=== PATIENT | female | born 1950 | race Caucasian/White ===

== ENCOUNTER 2021-10-26 17:53 | Emergency (ER) | payer MEDICARE, BC ==
[~2021-10-26] VITALS: Ht 157.5 cm; Wt 61.2 kg
--- NOTE | 2021-10-26 18:32 | NUR ---
DR BUCHANAN AT BEDSIDE
--- NOTE | 2021-10-26 18:51 | NUR ---
PATIENT WHEELED OUT VIA GURNEY FOR CT SCAN
[2021-10-26] MEDS ORDERED: LIDOCAINE HCL/MPF 1% 30 ML VIAL IJ ONE (18:53)
[2021-10-26] MEDS ORDERED: HYDROCODONE/APAP 5/325MG TABLET ONE (18:54)
[2021-10-26] MEDS ORDERED: BACI/NEOM/POLY B OINT PKT 1 UDPKT PACKET ONE (18:54)
[2021-10-26] MEDS ORDERED: HYDROCODONE/APAP 5/325MG TABLET PO ONE (19:00)
[2021-10-26] MEDS ORDERED: LIDOCAINE HCL/PF 1% 30 ML VIAL TP ONE (19:00)
[2021-10-26] MEDS ORDERED: BACI/NEOM/POLY B OINT PKT 1 UDPKT PACKET TP ONE (19:00)
--- NOTE | 2021-10-26 19:00 | NUR ---
KRISTY [id number] From "Home was getting dressed-lost balance fell on left side +laceration left eyebrow" NO LOC . PT awake. Respirations even and non labored
--- NOTE | 2021-10-26 19:32 | NUR ---
WOUND CARE BEING DONE TO PT'S EYEBROW. MORRO CA AT PT'S BEDSIDE
--- NOTE | 2021-10-26 19:54 | NUR ---
5 STITCHES TO L EYEBROW
[2021-10-26] MEDS ORDERED: HYDR-4303 PO (20:00)
--- NOTE | 2021-10-26 20:31 | NUR ---
RX given to pt.
--- NOTE | 2021-10-26 20:31 | NUR ---
Patient discharged to home in stable condition. Written and verbal after care instructions given. Patient verbalizes understanding of instruction. PT dc via W/C
[2021-10-26 20:32] VITALS: BP 132/81
== END 2021-10-26 20:32 | disposition home or self-care (01) ==
LOC: ER 17:59
DX: S01.81XA Laceration without foreign body of other part of head, initial encounter (principal); M25.512 Pain in left shoulder; M25.552 Pain in left hip; G20 Parkinson's disease; Z87.39 Personal history of other diseases of the musculoskeletal system and connective tissue; Z79.891 Long term (current) use of opiate analgesic; W01.10XA Fall on same level from slipping, tripping and stumbling with subsequent striking against unspecified object, initial encounter; Y93.89 Activity, other specified; Y92.89 Other specified places as the place of occurrence of the external cause; Y99.8 Other external cause status
CPT/HCPCS: 12011; 70450; 73030; 73080; 73110; 73503; 99284; A6403; J3490 ×2; 73502

== ENCOUNTER 2024-10-02 00:15 | Emergency (ER) | payer MEDICARE, BC ==
[~2024-10-02] VITALS: Ht 157.5 cm; Wt 49.0 kg
[~2024-10-02 00:15] MED LIST: HYDR-4303 PO
[2024-10-02] MEDS: MORPHINE SULFATE INJ 2 MG/ML DISP.SYRIN IV ONE (00:30)
[2024-10-02] MEDS ORDERED: MORPHINE SULFATE INJ 4 MG/ML DISP.SYRIN ONE (00:48)
[2024-10-02 00:54] LABS: BASOPHILS # (AUTO) 0.1 K/uL (0.0-0.2); EOSINOPHILS # (AUTO) 0.3 K/uL (0.0-0.7); EOSINOPHILS % (AUTO) 3.8 % (0.0-6.0); HEMATOCRIT 32 % (33-45); HEMOGLOBIN 10.6 g/dL (11.5-14.8); LYMPHOCYTES # (AUTO) 1.9 K/uL (0.8-4.8); LYMPHOCYTES % (AUTO) 20.9 % (20.0-44.0); MEAN CORPUSCULAR HEMOGLOBIN 32 PG (26.0-33.0); MEAN CORPUSCULAR HGB CONC 34 g/dl (31.0-36.0); MEAN CORPUSCULAR VOLUME 95 fL (82-100); MONOCYTES # (AUTO) 0.9 K/uL (0.1-1.30); MONOCYTES % (AUTO) 10.2 % (2.0-12.0); NEUTROPHILS % (AUTO) 64.1 % (43.0-81.0); PLATELET COUNT (AUTO) 362 K/uL (150-450); RED BLOOD CELL COUNT(AUTO) 3.35 MIL/uL (4.0-5.2); RED CELL DISTRIBUTION WIDTH 13.8 % (11.5-15.0); WHITE BLOOD COUNT (AUTO) 9.3 K/uL (4.3-11.0)
[2024-10-02 01:02] LABS: CALCIUM, SERUM 9.7 mg/dL (8.5-10.1); CREATININE 0.8 mg/dL (0.6-1.3); POTASSIUM 4.2 mmol/L (3.5-5.1)
[2024-10-02 01:07] LABS: INR 1.02 (0.91-1.10); PROTHROMBIN TIME 10.8 SECS (9.2-11.1)
[2024-10-02 06:53] VITALS: BP 125/98; TEMP 98.1; O2SAT 95
== END 2024-10-02 06:54 | disposition home or self-care (01) ==
LOC: ER 00:26
DX: G89.18 Other acute postprocedural pain (principal); G20.A1 Parkinson's disease without dyskinesia, without mention of fluctuations; Z96.652 Presence of left artificial knee joint
CPT/HCPCS: 99285; 96374; 93971; 73564; 85025; 80048; 36415; 85730; J2270